=== PATIENT | female | born 1990 | race Caucasian/White ===

== ENCOUNTER 2016-09-03 18:08 | Emergency (ER) | payer BC ==
[~2016-09-03] VITALS: Ht 165.1 cm; Wt 59.0 kg
[~2016-09-03 18:08] MED LIST: FLUO40CA8 PO
[2016-09-03 18:14] VITALS: TEMP 37; Ht 165.1 cm; Wt 59.0 kg
[2016-09-03 18:22] VITALS: O2SAT 98
--- NOTE | 2016-09-03 18:34 | EMERGENCY ROOM VISIT NOTE ---
History Report prepared by [place]: Ilda San Under the Supervision of: Dr. Mahesh Fournier M.D. First contact with patient: 18:12 Stated Complaint: alcohol History of Present Illness The patient is a 26 year old female who presents to the Emergency Room with an alcohol overdose that occurred prior to arrival. Per nursing staff, the patient drinks 1/5 of vodka per day. Nursing staff reports that the patient uses meth, cocaine, and Adderall recreationally, but states that she last used them a week and a half ago. Nursing staff reports that when the patient does not drink she experiences the shakes. Nursing staff reports that the patient was found at the [facility] passed out. The patient states that she might be today. She states that she did not use any other drugs than alcohol today. The patient states that she has been evaluated in a rehabilitation facility in the past and states that she is interested today in obtaining help to get off the drugs and alcohol. Nursing staff reports that the patient ran away from [facility] today. The history is limited secondary to her alcohol intoxication. Source of History: patient, nursing staff History Limited By: intoxication (alcohol) Onset: prior to arrival Position: other (global) Quality: other (alcohol overdose) Review of Systems Due to the patient's altered mental status and alcohol intoxication, she was unable to fill out the medical history sheet questionnaire. Past Medical & Surgical Surgical Problems: (1) History of brain surgery Family History Alcoholism Bipolar disease Heart disease Hypertension Social History Smoking Status: Never Smoker Alcohol Use: occasionally Marital Status: single Housing Status: lives with roommate Occupation Status: unemployed Current/Historical Medications Scheduled Fluoxetine (Prozac), 60 MG PO DAILY Gabapentin (Neurontin), 600 MG PO QID Metoprolol Tartrate (Lopressor) (Lopressor), 25 MG PO BID Probiotic Product (Probiotic), 1 CAP PO DAILY Scheduled PRN Alprazolam (Xanax), 1 MG PO DAILY PRN for Anxiety Allergies Coded Allergies: SHELLFISH (Verified Allergy, Unknown, itchy mouth, 06/24/14) Physical Exam Vital Signs Date Time Temp Pulse Resp B/P (MAP) Pulse Ox O2 Delivery O2 Flow Rate FiO2 09/03/16 21:25 67 18 81/45 100 Room Air 09/03/16 20:00 67 18 89/54 98 Room Air 09/03/16 19:05 72 18 93/49 99 Room Air 09/03/16 18:22 98 Room Air 09/03/16 18:21 79 09/03/16 18:14 37.0 77 18 100/47 99 Room Air Physical Exam GENERAL: Patient awake and arousable, and appears to be intoxicated. SKIN: Red blanching rash on her chest. HEENT: Normal head, pupils equal, reactive to light and accommodation. Ears normal. Oral cavity and posterior pharynx appear normal. Neck: Without adenopathy, no neck vein distention. LUNGS: Clear to auscultation. No wheezes, no rales, no rhonchi. HEART: No murmurs. No gallops. No rubs ABDOMEN: No masses, no rebound, no hepatomegaly or splenomegaly. EXTREMITIES: No signs of trauma. No pedal or pretibial edema. No calf or thigh tenderness. NEUROLOGIC: Cranial nerves II-XII within normal limits. No gross motor sensory function deficits. PSYCHIATRIC: Patient is drowsy. She appears to be intoxicated. She is not suicidal/homicidal. Medical Decision & Procedures Laboratory Results 09/03/16 18:41 09/03/16 18:41 Test 09/03/16 18:41 09/03/16 18:48 Red Blood Count 4.17 M/uL (4.2-5.4) Mean Corpuscular Volume 98.3 fL (80-100) Mean Corpuscular Hemoglobin 31.4 pg (25-34) Mean Corpuscular Hemoglobin Concent 32.0 g/dl (32-36) RDW Standard Deviation 45.7 fL (36.4-46.3) RDW Coefficient of Variation 12.6 % (11.5-14.5) Mean Platelet Volume 9.0 fL (7.4-10.4) Anion Gap 8.0 mmol/L (3-11) Est Creatinine Clear Calc Drug Dose 77.4 ml/min Estimated GFR () 90.7 Estimated GFR (Non- 78.2 BUN/Creatinine Ratio 11.6 (10-20) Calcium Level 8.6 mg/dl (8.5-10.1) Total Bilirubin 0.2 mg/dl (0.2-1) Aspartate Amino Transf (AST/SGOT) 37 U/L (15-37) Alanine Aminotransferase (ALT/SGPT) 47 U/L (12-78) Alkaline Phosphatase 71 U/L (45-117) Total Protein 6.9 gm/dl (6.4-8.2) Albumin 3.7 gm/dl (3.4-5.0) Globulin 3.2 gm/dl (2.5-4.0) Albumin/Globulin Ratio 1.2 (0.9-2) Chemistry Specimen Hemolysis Ethyl Alcohol mg/dL 209.0 mg/dl (0-3) Urine Color YELLOW Urine Appearance CLEAR (CLEAR) Urine pH 8.0 (4.5-7.5) Urine Specific [place] 1.008 (1.000-1.030) Urine Protein NEG (NEG) Urine Glucose (UA) NEG (NEG) Urine Ketones NEG (NEG) Urine Occult Blood NEG (NEG) Urine Nitrite NEG (NEG) Urine Bilirubin NEG (NEG) Urine Urobilinogen NEG (NEG) Urine Leukocyte Esterase NEG (NEG) Urine Test NEG (NEG) Urine Opiates Screen NEG (NEG) Urine Methadone, Qualitative NEG (NEG) Urine Barbiturates NEG (NEG) Urine Phencyclidine (PCP) Level NEG (NEG) Ur Amphetamine/Methamphetamine NEG (NEG) MDMA (Ecstasy) Screen NEG (NEG) Urine Benzodiazepines Screen POS (NEG) Urine Cocaine Metabolite NEG (NEG) Urine Marijuana (THC) NEG (NEG) Laboratory results as stated above per my review. ECG Indication: toxicologic Rate (beats per minute): 74 Rhythm: normal sinus Findings: no acute ischemic change, no ectopy ED Course 1812: Past medical records reviewed. The patient was evaluated in room C4. A complete history and physical examination was performed. Medical Decision Nurses notes reviewed. Differential diagnosis includes but is not limited to: alcohol intoxication, other non-prescribed drug intoxication, metabolic disorder. Multiple labs were evaluated . Please see above. Patient is a known alcoholic. She states that she's had alcohol withdrawal in the past. The patient apparently left [facility] earlier today. The patient drank approximately three quarters of a fifth of Vodka today. There is no hisory of recent trauma. The patient regularly uses other street drugs. The patient is not interested in rehabilitation in the near future. The patient was observed for over 3 hours and was ultimately felt safe to return home.. Medication Reconciliation: I attest that I have personally reviewed the patient' s current medication list. Blood pressure Screening: Patient was found to have normal blood pressure on screening and does not require follow up. Impression Primary Impression: Alcohol intoxication Additional Impression: Rash Scribe Attestation The scribe's documentation has been prepared under my direction and personally reviewed by me in its entirety. I confirm that the note above accurately reflects all work, treatment, procedures, and medical decision making performed by me. Departure Information Dispostion Home / Self-Care Referrals No Doctor, Assigned (PCP) Additional Instructions NO ALCOHOL OR NONPRESCRIBED DRUGS. Take all of your prescribed medications as directed. Follow with your family physician within the next 10 days. Follow up with your psychiatrist as soon as possible. Problem Qualifiers
[2016-09-03 19:02] LABS: MEAN CELL VOLUME 98.3 fL (80-100); MEAN CORPUSCULAR HEMOGLOBIN 31.4 pg (25-34); PLATELET COUNT 327 K/uL (130-400); RED BLOOD COUNT 4.17 M/uL (4.2-5.4); WHITE BLOOD COUNT 4.94 K/uL (4.8-10.8)
[2016-09-03 19:13] LABS: URINE APPEARANCE CLEAR (CLEAR); URINE BILIRUBIN NEG (NEG); URINE COLOR YELLOW; URINE NITRITE NEG (NEG); URINE SPECIFIC GRAVITY 1.008 (1.000-1.030); UROBILINOGEN NEG (NEG); ZZUR CULT IF INDIC CLEAN CATCH NO
[2016-09-03 19:19] LABS: MANUAL MICROSCOPIC REQUIRED? NO; REVIEW REQ? NO
[2016-09-03] MEDS ORDERED: FLUO20CA35 PO (19:26)
[2016-09-03] MEDS ORDERED: METO25TA56 PO (19:27)
[2016-09-03] MEDS ORDERED: GABA-113 PO (19:28)
[2016-09-03] MEDS ORDERED: ALPR1TAB3 PO (19:29)
[2016-09-03 19:30] LABS: ALB/GLOB RATIO 1.2 (0.9-2); BUN/CREATININE RATIO 11.6 (10-20); CALCIUM 8.6 mg/dl (8.5-10.1); POTASSIUM 3.9 mmol/L (3.5-5.1)
[2016-09-03] MEDS ORDERED: MISCCAP80 PO (19:31)
[2016-09-03 19:44] LABS: BENZODIAZEPINE, URINE POS (NEG); COCAINE,URINE NEG (NEG); PHENCYCLIDINE, URINE NEG (NEG)
[2016-09-03 23:49] VITALS: BP 102/58; PULSE 78; O2SAT 97
[2016-09-07 11:02] LABS: HYDROXYETHYLFLURAZEPAM CONF NEGATIVE NG/ML (CUTOFF=50); HYDROXYMIDAZOLAM NEGATIVE NG/ML (CUTOFF=50); HYDROXYTRIAZOLAM CONF NEGATIVE NG/ML (CUTOFF=50); TEMAZEPAM CONF 258 NG/ML (CUTOFF=50)
== END 2016-09-04 00:05 | disposition home or self-care (01) ==
LOC: EDBD 18:08 → C.EDC 18:09
DX: F10.129 Alcohol abuse with intoxication, unspecified (principal); R21 Rash and other nonspecific skin eruption; Z82.49 Family history of ischemic heart disease and other diseases of the circulatory system; Z81.1 Family history of alcohol abuse and dependence; Z81.8 Family history of other mental and behavioral disorders; Z79.899 Other long term (current) drug therapy